=== PATIENT | female | born 1995 | race Caucasian/White ===

== ENCOUNTER 2023-04-19 12:09 | Emergency (ER) | payer BC ==
[2023-04-19 13:29] LABS: #Monocytes 0.2 10x3/uL (0.0-1.1); #Neutrophils 1.1 10x3/uL (1.5-8.4); %Lymphocytes 54.4 % (18.0-47.0); %Monocytes 5.4 % (0.0-10.0); %Neutrophils 38.2 % (40.0-75.0); Hematocrit 25.6 % (34.9-44.5); Hemoglobin 6.4 g/dL (12.0-15.5); Mean Corpuscular Hemoglobin 15.7 pg (27.0-33.0); Mean Corpuscular Volume 62.7 fl (81.6-98.3); Mean Platelet Volume 9.6 fl (7.4-10.4); Platelet Count 344 10x3/uL (150-450); RBC Distribution Width 22.2 % (11.5-14.5); Red Blood Cell (RBC) Count 4.08 10x6/uL (3.90-5.03); White Blood Cell (WBC) Count 2.9 10x3/uL (3.5-10.5)
[2023-04-19 13:32] LABS: ALT (SGPT) 47 U/L (8-55); AST (SGOT) 32 U/L (5-34); Albumin 4.8 g/dL (3.5-5.0); Alkaline Phosphatase 61 U/L (40-110); Anion Gap 13 mmol/L (10-20); BUN (Urea Nitrogen) 12 mg/dL (7.0-18.7); Bilirubin, Total 0.6 mg/dL (0.2-1.2); Calc. Creatinine Clearance 0 mL/min (70-130); Calcium 9.1 mg/dL (7.8-10.44); Carbon Dioxide 23 mmol/L (22-29); Chloride 108 mmol/L (98-107); Estimated GFR 103; Globulin 3.2 g/dL (2.4-3.5); Glucose 110 mg/dL (70-105); Potassium 3.5 mmol/L (3.5-5.1); Sodium 140 mmol/L (136-145)
[2023-04-19 14:07] LABS: Anisocytosis SLIGHT = 6-15 cells (100X) (0-5/hpf); Microcytosis MODERATE=15-30 cells (100X) (0-5/hpf)
[2023-04-19 14:08] LABS: Elliptocytes SLIGHT = 2-5 cells (100X) (0-1/hpf); Polychromasia SLIGHT = 2-3 cells (100X) (0-2/hpf)
[2023-04-19 14:10] LABS: Hypochromia MODERATE=16-30 cells (100X) (0-5/hpf)
== END 2023-04-19 16:23 | disposition home or self-care (01) ==
LOC: CSHERS 12:09
DX: D64.9 Anemia, unspecified (principal)
CPT/HCPCS: 36430; 80053; 85025; 86850; 86900; 86901; 99284; P9016